=== PATIENT | male | born 1980 ===

== ENCOUNTER 2024-07-14 09:06 | Outpatient (CLI) | payer BC, SELFPAY | END 2024-07-14 09:07 | disposition home or self-care (01) | PROVIDERS: PCP Family Medicine; Visit Provider Family Medicine | DX: Z13.228 Encounter for screening for other metabolic disorders (principal); Z13.6 Encounter for screening for cardiovascular disorders; Z13.0 Encounter for screening for diseases of the blood and blood-forming organs and certain disorders involving the immune mechanism | CPT/HCPCS: 80048; 80061; 85025 ==

== ENCOUNTER 2024-10-06 08:33 | Outpatient (CLI) | payer BC, SELFPAY ==
--- NOTE | 2024-10-06 10:08 | P.ANES_ITS ---
Anesthesia Charges Start Date/Time Anesthesia Start Date: 10/06/24 Anesthesia Start Time: 09:43 Stop Date/Time Anesthesia Stop Date: 10/06/24 Anesthesia Stop Time: 10:05 Coding CPT Codes CPT Codes: NEHA LWR INTST SCR COLSC - [id number] ([id number]) P1 - NORMAL HEALTHY PATIENT, QK - EXTRUSION TECHNICIAN 2-4 CNCRNT ANES PROC, QX - ORGANIZATION DEVELOPMENT CONSULTANT SVC W/ MED DIRECTION
--- NOTE | 2024-10-06 10:08 | W.ANESCHARGE ---
Anesthesia Charges Start Date/Time Anesthesia Start Date: 10/06/24 Anesthesia Start Time: 09:43 Stop Date/Time Anesthesia Stop Date: 10/06/24 Anesthesia Stop Time: 10:05 Coding CPT Codes CPT Codes: NEHA LWR INTST SCR COLSC - [id number] ([id number]) P1 - NORMAL HEALTHY PATIENT, QK - MASONRY TEACHER 2-4 CNCRNT ANES PROC, QX - UNIT MANAGER CONVENIENCE STORES SVC W/ MED DIRECTION
--- NOTE | 2024-10-06 11:21 | P.ANES_ITS ---
Anesthesia Charges Start Date/Time Anesthesia Start Date: 10/06/24 Anesthesia Start Time: 09:43 Stop Date/Time Anesthesia Stop Date: 10/06/24 Anesthesia Stop Time: 10:05 Coding CPT Codes CPT Codes: NEHA LWR INTST SCR COLSC - [id number] ([id number]) P1 - NORMAL HEALTHY PATIENT, QK - MORTAR MAN 2-4 CNCRNT ANES PROC, QX - VETERINARY ASSISTANT TECHNICIAN SVC W/ MED DIRECTION
--- NOTE | 2024-10-06 11:21 | W.ANESCHARGE ---
Anesthesia Charges Start Date/Time Anesthesia Start Date: 10/06/24 Anesthesia Start Time: 09:43 Stop Date/Time Anesthesia Stop Date: 10/06/24 Anesthesia Stop Time: 10:05 Coding CPT Codes CPT Codes: NEHA LWR INTST SCR COLSC - [id number] ([id number]) P1 - NORMAL HEALTHY PATIENT, QK - DOCUMENTATION CONSULTANT 2-4 CNCRNT ANES PROC, QX - STATION ENGINEER MAIN LINE SVC W/ MED DIRECTION
== END 2024-10-06 08:34 | disposition home or self-care (01) ==
LOC: OP CLINIC 08:34
PROVIDERS: PCP Family Medicine; Visit Provider Surgery
DX: Z12.11 Encounter for screening for malignant neoplasm of colon (principal); K57.30 Diverticulosis of large intestine without perforation or abscess without bleeding
CPT/HCPCS: 00812; 45378; J2704